=== PATIENT | male | born 1960 ===

== ENCOUNTER 2017-09-30 10:31 | Day surgery (SDC) | payer MEDICARE, MEDICAID ==
[2017-09-30] MEDS ORDERED: Lactated Ringer's 1,000 ML IV ONE (11:16)
[2017-09-30 11:24] VITALS: BMI 27.8
[2017-09-30 13:00] VITALS: BP 101/50; PULSE 75; RESP 24; TEMP 97.1; O2SAT 100
== END 2017-09-30 13:26 | disposition home or self-care (01) ==
LOC: H.ENDO 10:31
PROVIDERS: ATTEND Internal Medicine Gastroenterology
DX: Z12.11 Encounter for screening for malignant neoplasm of colon (principal); K63.5 Polyp of colon; K74.60 Unspecified cirrhosis of liver; I85.10 Secondary esophageal varices without bleeding; K76.6 Portal hypertension; K29.50 Unspecified chronic gastritis without bleeding; K20.9 Esophagitis, unspecified; K31.89 Other diseases of stomach and duodenum; B20 Human immunodeficiency virus [HIV] disease; Z86.19 Personal history of other infectious and parasitic diseases
CPT/HCPCS: 43239; 45378; 88305; J7120

== ENCOUNTER 2017-10-14 09:08 | Day surgery (SDC) | payer MEDICARE, MEDICAID ==
[2017-10-14] MEDS ORDERED: Lactated Ringer's 1,000 ML IV ONE (09:23)
[2017-10-14] MEDS ORDERED: Lidocaine PF 2% (5 ml) Inj (For Cardiac Arrhy) IV ONE (10:58)
[2017-10-14] MEDS ORDERED: Propofol 10 mg/ml Inj (20 ML) ONE (10:58)
[2017-10-14 13:00] VITALS: BP 122/59; PULSE 69; RESP 16; TEMP 98; O2SAT 100
== END 2017-10-14 13:01 | disposition home or self-care (01) ==
LOC: H.ENDO 09:08
PROVIDERS: ATTEND Internal Medicine Gastroenterology
DX: Z12.11 Encounter for screening for malignant neoplasm of colon (principal); I10 Essential (primary) hypertension; K62.1 Rectal polyp; D12.5 Benign neoplasm of sigmoid colon; D12.3 Benign neoplasm of transverse colon; D12.4 Benign neoplasm of descending colon
CPT/HCPCS: 45385; 88305; J2001; J2704; J7120